=== PATIENT | female | born 1960 | race Caucasian/White ===

== ENCOUNTER 2020-06-18 15:26 | Inpatient (IN) | payer MEDICARE, MEDICAID ==
[2020-06-18] MEDS ORDERED: Albuterol/Ipratropium 3.0-0.5 MG/3 ML Neb Soln NEB ONE (16:04)
--- NOTE | 2020-06-18 16:07 | EDM.PDOC ---
ED HPI GENERAL MEDICAL PROBLEM - General Chief Complaint: Cardiovascular Problem Stated Complaint: CHEST PAIN Time Seen by Provider: 06/18/20 15:50 Source of Information: Reports: Patient, Family History Limitations: Reports: No Limitations - History of Present Illness INITIAL COMMENTS - FREE TEXT/NARRATIVE: 59-year-old female with chronic COPD, asthma, continued cigarette smoker has 2 to 3 days of increased cough, wheezing, chest pain with coughing, and now today hemoptysis. She is extremely scared, hyperventilating because her mother of colon cancer. No fevers or chills. She did get vaccination for Covid. Onset: Gradual Duration: Day(s): (Cough and shortness of breath is been gradually worsening for 3 days, hemoptysis started today fairly suddenly) Location: Reports: Chest (Chest hurts with coughing) Associated Symptoms: Reports: Chest Pain, Cough, Shortness of Breath. Denies: Fever/Chills, Nausea/Vomiting Middle Chest Pain Score (Numeric/FACES): 5 Back Pain Score (Numeric/FACES): 3 - Related Data Allergies Allergy/AdvReac Type Severity Reaction Status Date / Time bee venom protein (honey bee) Allergy Severe Airway Verified 06/19/20 10:24 Tightness divalproex sodium Allergy Severe Anaphylactic Verified 06/19/20 08:42 [From Depakote] Shock Home Meds: Home Meds Albuterol Sulfate [Proair Hfa] 1 - 2 inh INH ASDIRECTED 06/18/20 [History] Albuterol [Proventil Neb Soln] 3 ml INH QID 06/18/20 [History] Albuterol/Ipratropium [DuoNeb 3.0-0.5 MG/3 ML] 1 ml INH Q4H 06/18/20 [History] Cyclobenzaprine [Flexeril] 10 mg PO TID 06/18/20 [History] Dextroamphetamine/Amphetamine [Adderall 10 mg Tablet] 1 tab PO BID 06/18/20 [History] Diphenhyd/Lidocaine/Nystatin [Magic Mouthwash] 5 ml PO QID 06/18/20 [History] EPINEPHrine [Auvi-Q] 0.3 ml SQ ASDIRECTED 06/18/20 [History] Fluticasone Propionate [Flonase] 2 sprays NS DAILY 06/18/20 [History] Fluticasone/Vilanterol [Breo Ellipta 100-25 MCG Inhalation Kit] 1 inh INH DAILY 06/18/20 [History] Gabapentin [Neurontin] 300 mg PO TID 06/18/20 [History] Montelukast [Singulair] 10 mg PO PCDINNER 06/18/20 [History] Multivitamin with Minerals [Multiple Vitamin] 1 tab PO DAILY 06/18/20 [History] Nitroglycerin 1 tab SL ASDIRECTED 06/18/20 [History] Nystatin [Mycostatin] 1 applic TOP QID 06/18/20 [History] Nystatin [Nystatin Crm] 1 applic TOP BID 06/18/20 [History] Omeprazole Magnesium [Prilosec Otc] 20 mg PO DAILY 06/18/20 [History] Oxybutynin [Oxybutynin ER] 10 mg PO DAILY 06/18/20 [History] Pilocarpine [Salagen] 5 mg PO TID 06/18/20 [History] Rotigotine [Neupro] 4 mg TOP DAILY 06/18/20 [History] SUMAtriptan [Imitrex] 1 tab PO ASDIRECTED PRN 06/18/20 [History] Sodium Chloride 0.65% [[place] Nasal [place]] 2 spray INH QID 06/18/20 [History] Temazepam [Restoril] 30 mg PO BEDTIME 06/18/20 [History] Triamcinolone Acetonide [Triamcinolone Acetonide 0.5%] 1 applic TOP BID 06/18/20 [History] Umeclidinium Flushing [Incruse Ellipta*] 1 inh INH DAILY 06/18/20 [History] estradioL [Estrace] 2 mg PO DAILY 06/18/20 [History] oxyCODONE 10 mg PO Q4H PRN 06/18/20 [History] polyethylene glycoL 3350 [MiraLAX] 17 gm PO DAILY 06/18/20 [History] traZODone 50 mg PO BEDTIME 06/18/20 [History] Past Medical History HEENT History: Reports: None Cardiovascular History: Reports: Heart Failure Respiratory History: Reports: Asthma, Bronchitis, Recurrent, COPD Musculoskeletal History: Reports: Fibromyalgia, Other (See Below) Other Musculoskeletal History: pain clinic - Infectious Disease History Infectious Disease History: Reports: Chicken Pox, Measles, Mumps - Past Surgical History Head Surgeries/Procedures: Reports: None HEENT Surgical History: Reports: Tonsillectomy Respiratory Surgical History: Reports: None Musculoskeletal Surgical History: Reports: None Social & Family History - Tobacco Use Tobacco Use Status *Q: Current Every Day Tobacco User Years of Tobacco use: 40 Packs/Tins Daily: 0.5 - Caffeine Use Caffeine Use: Reports: Coffee, Soda, Tea - Recreational Drug Use Recreational Drug Use: No ED ROS GENERAL - Review of Systems Review Of Systems: See Below Constitutional: Reports: Chills, Malaise. Denies: Fever HEENT: Denies: Throat Pain Respiratory: Reports: Shortness of Breath, Wheezing, Cough, Sputum, Hemoptysis Cardiovascular: Reports: Chest Pain, Dyspnea on Exertion GI/Abdominal: Denies: Nausea, Vomiting ED EXAM, GENERAL - Physical Exam Exam: See Below Exam Limited By: No Limitations General Appearance: Alert, Anxious, Mild Distress (Appears to be hyperventilating) Head: Atraumatic Respiratory/Chest: Other (Diffuse inspiratory and expiratory wheezes, bronchial rales present) Cardiovascular: Regular Rate, Rhythm, Tachycardia GI/Abdominal: Non-Tender Extremities: Normal Inspection. No: Pedal Edema Neurological: Alert, Oriented Psychiatric: Anxious Skin Exam: Warm, Dry Course - Vital Signs Last Recorded V/S: Last Vital Signs Temp 95.4 F L 06/19/20 12:30 Pulse 102 H 06/19/20 14:41 Resp 18 06/19/20 12:30 BP 150/80 H 06/19/20 12:30 Pulse Ox 95 06/19/20 13:28 - Orders/Labs/Meds Orders: Active Orders 24 hr Category Date Time Status Sodium Chloride 0.9% [Saline Flush] Med 06/18/20 17:57 Active 10 ml FLUSH ASDIRECTED PRN Medication Orders Albuterol (Albuterol 0.083% 2.5 Mg/3 Ml Neb Soln) 2.5 mg NEB Q4H PRN PRN Reason: Shortness Of Breath/wheezing Last Admin: 06/19/20 04:41 Dose: 2.5 mg Documented by: LUIS Cosigned by: LOW Admin: 06/19/20 00:10 Dose: 2.5 mg Documented by: LOW Albuterol/Ipratropium (Albuterol/Ipratropium 3.0-0.5 Mg/3 Ml Neb Soln) 3 ml NEB QIDRT [facility] Last Admin: 06/19/20 14:41 Dose: 3 ml Documented by: Admin: 06/19/20 10:37 Dose: 3 ml Documented by: Admin: 06/19/20 07:24 Dose: 3 ml Documented by: Admin: 06/18/20 20:32 Dose: 3 ml Documented by: MAREBLLA Bisacodyl (Bisacodyl 5 Mg Tab) 5 mg PO DAILY PRN PRN Reason: Constipation Cyclobenzaprine HCl (Cyclobenzaprine 10 Mg Tab) 10 mg PO TID [facility] Last Admin: 06/19/20 14:25 Dose: 10 mg Documented by: Admin: 06/19/20 08:27 Dose: 10 mg Documented by: AYO Cosigned by: AVANI Admin: 06/18/20 20:32 Dose: 10 mg Documented by: MARBELLA Docusate Sodium (Docusate Sodium 100 Mg Cap) 100 mg PO BID PRN PRN Reason: Constipation Enoxaparin Sodium (Enoxaparin 40 Mg/0.4 Ml Syringe) 40 mg SUBCUT BEDTIME [facility] Estradiol (Estradiol 0.5 Mg Tab) 2 mg PO DAILY [facility] Last Admin: 06/19/20 09:26 Dose: 2 mg Documented by: AVANI Fluticasone Propionate (Fluticasone Propionate Nasal [place] 16 Gm Bottle) 0 gm NASBOTH DAILY [facility] Last Admin: 06/19/20 08:28 Dose: Not Given Documented by: AYO Gabapentin (Gabapentin 300 Mg Cap) 300 mg PO TID [facility] Last Admin: 06/19/20 14:25 Dose: 300 mg Documented by: Admin: 06/19/20 08:27 Dose: 300 mg Documented by: AYO Cosigned by: AVANI Admin: 06/18/20 20:33 Dose: 300 mg Documented by: MARBELLA Ceftriaxone Sodium 1 gm/ (Sodium Chloride) 50 mls @ 100 mls/hr IV Q24H [facility] Last Admin: 06/18/20 20:31 Dose: 100 mls/hr Documented by: MARBELLA Doxycycline Hyclate 100 mg/ (Sodium Chloride) 100 mls @ 100 mls/hr IV Q12H [facility] Last Admin: 06/19/20 09:26 Dose: 100 mls/hr Documented by: AVANI Lactobacillus Rhamnosus (Lactobacillus Rhamnosus Gg (Probiotic) Cap) 1 cap PO BID [facility] Last Admin: 06/19/20 09:26 Dose: 1 cap Documented by: AVANI Methylprednisolone Sodium Succinate (Methylprednisolone Sodium Succinate 40 Mg/1 Ml Sdv) 40 mg IVPUSH Q6H [facility] Last Admin: 06/19/20 14:27 Dose: 40 mg Documented by: Admin: 06/19/20 08:28 Dose: 40 mg Documented by: AYO Cosigned by: AVANI Admin: 06/19/20 02:15 Dose: 40 mg Documented by: LUIS Jorgeigned by: LOW Montelukast Sodium (Montelukast 10 Mg Tab) [facility] Multivitamins/Minerals (Multivitamins With Iron/Calcium/Folic Acid/Minerals Tab) 1 tab PO DAILY [facility] Last Admin: 06/19/20 08:27 Dose: 1 tab Documented by: AYO Cosigned by: AVANI Nicotine (Nicotine 14 Mg/24 Hr Patch) 14 mg TRDERM DAILY [facility] Last Admin: 06/19/20 08:28 Dose: Not Given Documented by: AYO Nitroglycerin (Nitroglycerin 0.4 Mg Tab.Sl) 0.4 mg SL ASDIRECTED PRN PRN Reason: Chest Pain Non-Formulary Medication (Pilocarpine [Salagen]) 5 mg PO TID [facility] Ondansetron HCl (Ondansetron 4 Mg Tab.Dis) 4 mg PO Q6H PRN PRN Reason: Nausea able to take PO Ondansetron HCl (Ondansetron 4 Mg/2 Ml Sdv) 4 mg IV Q4H PRN PRN Reason: Nausea/Vomiting Oxycodone HCl (Oxycodone 5 Mg Tab) 10 mg PO Q4H PRN PRN Reason: Pain Last Admin: 06/19/20 16:40 Dose: 10 mg Documented by: Admin: 06/19/20 12:39 Dose: 10 mg Documented by: AYO Cosigned by: [email or web address] Admin: 06/19/20 08:32 Dose: 10 mg Documented by: AYO Jorgeigned by: AVANI Admin: 06/19/20 04:41 Dose: 10 mg Documented by: LUIS Jorgeigned by: LOW Admin: 06/19/20 00:45 Dose: 10 mg Documented by: Admin: 06/18/20 20:44 Dose: 10 mg Documented by: MARBELLA Pantoprazole Sodium (Pantoprazole 40 Mg Tab.Cr) 40 mg PO BEDTIME [facility] Polyethylene Glycol (Polyethylene Glycol 3350 Powder 17 Gm Packet) 17 gm PO DAILY SERJIO Last Admin: 06/19/20 08:29 Dose: 17 gm Documented by: AYO Cosigned by: AVANI Sodium Chloride (Sodium Chloride 0.9% 10 Ml Syringe) 10 ml FLUSH ASDIRECTED PRN PRN Reason: Keep Vein Open Last Admin: 06/18/20 18:10 Dose: 10 ml Documented by: Admin: 06/18/20 18:08 Dose: 10 ml Documented by: CAROLYN Sumatriptan Succinate (Sumatriptan 50 Mg Tab) 50 mg PO Q2H PRN PRN Reason: Headache Last Admin: 06/19/20 14:24 Dose: 50 mg Documented by: AVANI Temazepam (Temazepam 15 Mg Cap) 30 mg PO BEDTIME PRN PRN Reason: Insomnia Last Admin: 06/18/20 20:59 Dose: 30 mg Documented by: MARBELLA Trazodone HCl (Trazodone 50 Mg Tab) 50 mg PO BEDTIME SERJIO Last Admin: 06/18/20 20:32 Dose: 50 mg Documented by: MARBELLA Labs: Laboratory Tests 06/18/20 06/18/20 06/18/20 Range/Units 16:04 16:14 16:14 WBC 7.5 (4.5-11.0) K/uL RBC 3.95 (3.30-5.50) M/uL Hgb 12.0 (12.0-15.0) g/dL Hct 37.3 (36.0-48.0) % MCV 94 (80-98) fL MCH 30 (27-31) pg MCHC 32 (32-36) % Plt Count 399 (150-400) K/uL Neut % (Auto) 57 (36-66) % Lymph % (Auto) 24 (24-44) % [place] % (Auto) 13 H (2-6) % Eos % (Auto) 5 H (2-4) % Baso % (Auto) 1 (0-1) % D-Dimer, Quantitative 1292.15 H (0.0-500.0) ng/mL Sodium (140-148) mmol/L Potassium (3.6-5.2) mmol/L Chloride (100-108) mmol/L Carbon Dioxide (21-32) mmol/L Anion Gap (5.0-14.0) mmol/L BUN (7-18) mg/dL Creatinine (0.6-1.0) mg/dL Est Cr Clr Drug Dosing mL/min Estimated GFR (MDRD) (>60) Glucose (74-106) mg/dL Calcium (8.5-10.1) mg/dL Total Bilirubin (0.2-1.0) mg/dL AST (15-37) U/L ALT (12-78) U/L Alkaline Phosphatase (46-116) U/L Troponin I (0.000-0.056) ng/mL Total Protein (6.4-8.2) g/dL Albumin (3.4-5.0) g/dL Globulin (2.3-3.5) g/dL Albumin/Globulin Ratio (1.2-2.2) Amylase (25-115) U/L Lipase (73-393) U/L Influenza Type A RNA Negative (NEGATIVE) RSV RNA (INAAT) Negative (NEGATIVE) Influenza Type B RNA Negative (NEGATIVE) SARS-CoV-2 RNA (KENNA) Negative (NEGATIVE) 06/18/20 06/18/20 Range/Units 16:14 16:19 WBC (4.5-11.0) K/uL RBC (3.30-5.50) M/uL Hgb (12.0-15.0) g/dL Hct (36.0-48.0) % MCV (80-98) fL MCH (27-31) pg MCHC (32-36) % Plt Count (150-400) K/uL Neut % (Auto) (36-66) % Lymph % (Auto) (24-44) % [place] % (Auto) (2-6) % Eos % (Auto) (2-4) % Baso % (Auto) (0-1) % D-Dimer, Quantitative (0.0-500.0) ng/mL Sodium 142 (140-148) mmol/L Potassium 4.3 (3.6-5.2) mmol/L Chloride 102 (100-108) mmol/L Carbon Dioxide 27 (21-32) mmol/L Anion Gap 13.4 (5.0-14.0) mmol/L BUN 13 (7-18) mg/dL Creatinine 0.6 (0.6-1.0) mg/dL Est Cr Clr Drug Dosing 104.35 mL/min Estimated GFR (MDRD) > 60 (>60) Glucose 117 H (74-106) mg/dL Calcium 9.6 (8.5-10.1) mg/dL Total Bilirubin 0.2 (0.2-1.0) mg/dL AST 11 L (15-37) U/L ALT 16 (12-78) U/L Alkaline Phosphatase 110 (46-116) U/L Troponin I < 0.017 (0.000-0.056) ng/mL Total Protein 7.4 (6.4-8.2) g/dL Albumin 2.8 L (3.4-5.0) g/dL Globulin 4.6 H (2.3-3.5) g/dL Albumin/Globulin Ratio 0.6 L (1.2-2.2) Amylase 21 L (25-115) U/L Lipase 85 (73-393) U/L Influenza Type A RNA (NEGATIVE) RSV RNA (INAAT) (NEGATIVE) Influenza Type B RNA (NEGATIVE) SARS-CoV-2 RNA (KENNA) (NEGATIVE) Meds: Medications Generic Name Dose Route Start Last Admin Trade Name Freq PRN Reason Stop Dose Admin Albuterol 2.5 mg 06/18/20 19:57 06/19/20 04:41 Albuterol 0.083% 2.5 Mg/3 Ml Neb Soln NEB 2.5 mg Q4H PRN Administration Shortness Of Breath/wheezing Albuterol/Ipratropium 3 ml 06/18/20 21:00 06/19/20 14:41 Albuterol/Ipratropium 3.0-0.5 Mg/3 Ml Neb Soln NEB 3 ml QIDRT SERJIO Administration Bisacodyl 5 mg 06/18/20 19:57 Bisacodyl 5 Mg Tab PO DAILY PRN Constipation Cyclobenzaprine HCl 10 mg 06/18/20 21:00 06/19/20 14:25 Cyclobenzaprine 10 Mg Tab PO 10 mg TID SERJIO Administration Docusate Sodium 100 mg 06/18/20 19:57 Docusate Sodium 100 Mg Cap PO BID PRN Constipation Enoxaparin Sodium 40 mg 06/19/20 21:00 Enoxaparin 40 Mg/0.4 Ml Syringe SUBCUT BEDTIME [facility] Estradiol 2 mg 06/19/20 09:00 06/19/20 09:26 Estradiol 0.5 Mg Tab PO 2 mg DAILY SERJIO Administration Fluticasone Propionate 0 gm 06/19/20 09:00 06/19/20 08:28 Fluticasone Propionate Nasal [place] 16 Gm Bottle NASBOTH Not Given DAILY [facility] Gabapentin 300 mg 06/18/20 21:00 06/19/20 14:25 Gabapentin 300 Mg Cap PO 300 mg TID [facility] Administration Ceftriaxone Sodium 1 gm/ 50 mls @ 100 mls/hr 06/18/20 20:00 06/18/20 20:31 Sodium Chloride IV 100 mls/hr Q24H SERJIO Administration Doxycycline Hyclate 100 mg/ 100 mls @ 100 mls/hr 06/19/20 09:00 06/19/20 09:26 Sodium Chloride IV 100 mls/hr Q12H SERJIO Administration Lactobacillus Rhamnosus 1 cap 06/19/20 09:00 06/19/20 09:26 Lactobacillus Rhamnosus Gg (Probiotic) Cap PO 1 cap BID SERJIO Administration Methylprednisolone Sodium Succinate 40 mg 06/19/20 02:00 06/19/20 14:27 Methylprednisolone Sodium Succinate 40 Mg/1 Ml Sdv IVPUSH 40 mg Q6H [facility] Administration Montelukast Sodium 10 mg 06/19/20 18:00 Montelukast 10 Mg Tab PO PCDINNER [facility] Multivitamins/Minerals 1 tab 06/19/20 09:00 06/19/20 08:27 Multivitamins With Iron/Calcium/Folic Acid/Minerals Tab PO 1 tab DAILY [facility] Administration Nicotine 14 mg 06/19/20 09:00 06/19/20 08:28 Nicotine 14 Mg/24 Hr Patch TRDERM Not Given DAILY [facility] Nitroglycerin 0.4 mg 06/18/20 19:57 Nitroglycerin 0.4 Mg Tab.Sl SL ASDIRECTED PRN Chest Pain Non-Formulary Medication 5 mg 06/18/20 21:00 Pilocarpine [Salagen] PO TID SERJIO Ondansetron HCl 4 mg 06/18/20 19:57 Ondansetron 4 Mg Tab.Dis PO Q6H PRN Nausea able to take PO Ondansetron HCl 4 mg 06/18/20 19:57 Ondansetron 4 Mg/2 Ml Sdv IV Q4H PRN Nausea/Vomiting Oxycodone HCl 10 mg 06/18/20 20:10 06/19/20 16:40 Oxycodone 5 Mg Tab PO 10 mg Q4H PRN Administration Pain Pantoprazole Sodium 40 mg 06/19/20 21:00 Pantoprazole 40 Mg Tab.Cr PO BEDTIME SERJIO Polyethylene Glycol 17 gm 06/19/20 09:00 06/19/20 08:29 Polyethylene Glycol 3350 Powder 17 Gm Packet PO 17 gm DAILY SERJIO Administration Sodium Chloride 10 ml 06/18/20 17:57 06/18/20 18:10 Sodium Chloride 0.9% 10 Ml Syringe FLUSH 10 ml ASDIRECTED PRN Administration Keep Vein Open Sumatriptan Succinate 50 mg 06/19/20 14:13 06/19/20 14:24 Sumatriptan 50 Mg Tab PO 50 mg Q2H PRN Administration Headache Temazepam 30 mg 06/18/20 19:57 06/18/20 20:59 Temazepam 15 Mg Cap PO 30 mg BEDTIME PRN Administration Insomnia Trazodone HCl 50 mg 06/18/20 21:00 06/18/20 20:32 Trazodone 50 Mg Tab PO 50 mg BEDTIME SERJIO Administration Discontinued Medications Generic Name Dose Route Start Last Admin Trade Name Freq PRN Reason Stop Dose Admin Albuterol/Ipratropium 3 ml 06/18/20 16:04 06/18/20 16:20 Albuterol/Ipratropium 3.0-0.5 Mg/3 Ml Neb Soln NEB 06/18/20 16:05 3 ml ONETIME ONE Administration Enoxaparin Sodium 40 mg 06/18/20 19:57 06/18/20 20:32 Enoxaparin 40 Mg/0.4 Ml Syringe SUBCUT 40 mg DAILY SERJIO Administration Hydromorphone HCl 1 mg 06/18/20 19:07 06/18/20 19:34 Hydromorphone 1 Mg/Ml Syringe IVPUSH 06/18/20 19:08 1 mg ONETIME ONE Administration Sodium Chloride 1,000 mls @ 500 mls/hr 06/18/20 17:15 06/18/20 17:47 Normal Saline IV 500 mls/hr ASDIRECTED SERJIO Administration Sodium Chloride 80 mls @ 3 mls/sec 06/18/20 18:00 06/18/20 18:10 Normal Saline IV 3 mls/sec ASDIRECTED SERJIO Administration Azithromycin 500 mg/ Sodium 250 mls @ 250 mls/hr 06/18/20 20:00 06/18/20 20:36 Chloride IV 250 mls/hr Q24H SERJIO Administration Sodium Chloride 1,000 mls @ 125 mls/hr 06/18/20 19:57 06/19/20 04:44 Normal Saline IV 125 mls/hr ASDIRECTED SERJIO Administration Iopamidol 100 ml 06/18/20 18:00 06/18/20 18:10 Iopamidol 612 Mg/Ml 100 Ml Bottle IV 100 ml . DIRECTED SERJIO Administration Methylprednisolone Sodium Succinate 125 mg 06/18/20 19:57 06/18/20 20:31 Methylprednisolone Sodium Succinate 125 Mg/2 Ml Sdv IVPUSH 06/18/20 19:58 125 mg ONETIME ONE Administration Pantoprazole Sodium 40 mg 06/18/20 21:00 06/18/20 20:31 Pantoprazole 40 Mg Vial IV 40 mg BEDTIME SERJIO Administration - Re-Assessments/Exams Free Text/Narrative Re-Assessment/Exam: 06/18/20 17:42 EKG was done on arrival which showed no significant ST elevation or acute findings. CBC, CMP, troponin, D-dimer were obtained and the patient was given a DuoNeb. DuoNeb was moderately helpful, patient was sent for a two-view chest x-ray which showed diffuse bilateral infiltrates, right worse than left. For Plex viral study was obtained and was negative. Labs returned markedly normal including white count and hemoglobin, electrolytes, troponin was 0. D-dimer however was elevated at near 1700, and the patient continued to have a persistent cough with hemoptysis. An IV was then started and a CT of the chest with IV contrast was ordered. I discussed her case with Dr. Mccoy, he will accept admission unless the CT of the chest reveals something where she will need transfer. 06/19/20 17:18 CT scan shows diffuse parenchymal abnormalities with lymphadenopathy. Patient to be admitted to the hospital service for treatment and further evaluation. Departure - Departure Time of Disposition: 18:57 Disposition: Admitted As Inpatient 68 Clinical Impression: Chronic obstructive pulmonary disease with (acute) lower respiratory infection Sepsis Event Note (ED) - Evaluation Sepsis Screening Result: No Definite Risk - My Orders Last 24 Hours: My Active Orders 06/18/20 17:57 Sodium Chloride 0.9% [Saline Flush] 10 ml FLUSH ASDIRECTED PRN - Assessment/Plan Last 24 Hours: My Active Orders 06/18/20 17:57 Sodium Chloride 0.9% [Saline Flush] 10 ml FLUSH ASDIRECTED PRN
[2020-06-18] MEDS ORDERED: Sodium Chloride 0.9% 1,000 ML IV SCH (17:15)
[2020-06-18 17:18] LABS: CORONAVIRUS COVID-19 NAA NEGATIVE (NEGATIVE)
[2020-06-18] MEDS ORDERED: Sodium Chloride 0.9% 80 ML IV SCH (18:00)
[2020-06-18] MEDS ORDERED: Iopamidol 612 MG/ML 100 ML Bottle IV SCH (18:00)
[2020-06-18] MEDS: Sodium Chloride 0.9% 10 ML Syringe FLUSH PRN ×2 (18:08→18:10)
[2020-06-18] MEDS ORDERED: HYDROmorphone 1 MG/ML Syringe IVPUSH ONE (19:07)
--- NOTE | 2020-06-18 19:19 | CRLCT ---
Indication: Hemoptysis Technique: Contrast CT chest Comparison: No comparison Findings: Normal caliber thoracic aorta. The heart size is normal. There is mediastinal hilar adenopathy.Left cervical adenopathy with a 1.2cm short axi snode. There is right upper paratracheal adenopathy with a 1.3 centimeter short axis lymph node series 2, image 18. Example subcarinal node measuring 1.2 cm in short axis series 2, image 25 there is no pericardial effusion. Tiny pleural effusions. There is mild interlobular septal thickening. There is diffuse right greater than left nodular ground-glass opacities with more dense consolidation in the lung bases. No suspicious bony lesions. Impression: 1. Mediastinal right upper paratracheal adenopathy. Left cervical adenopathy. Findings could reflect lymphoproliferative process. 2. Diffuse right slightly worsened left nodular ground-glass opacities with more dense consolidation lower lobes may reflect pulmonary hemorrhage given clinical history. Interlobular septal thickening can be seen with pulmonary edema. Please note that all CT scans at this facility use dose modulation, iterative reconstruction, and/or weight-based dosing when appropriate to reduce radiation dose to as low as reasonably achievable. Dictated by Nieves Kearney MD @ Jun 18 2020 6:52PM (Electronically Signed)
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
[2020-06-18] MEDS ORDERED: Docusate Sodium 100 MG Cap PO PRN (19:57)
[2020-06-18] MEDS ORDERED: Ondansetron 4 MG/2 ML SDV IV PRN (19:57)
[2020-06-18] MEDS ORDERED: methylPREDNISolone Sodium Succinate 125 MG/2 ML SDV IVPUSH ONE (19:57)
[2020-06-18] MEDS ORDERED: Nitroglycerin 0.4 MG Tab.SL SL PRN (19:57)
[2020-06-18] MEDS ORDERED: Ondansetron 4 MG Tab.DIS PO PRN (19:57)
[2020-06-18] MEDS ORDERED: Bisacodyl 5 MG Tab PO PRN (19:57)
[2020-06-18] MEDS ORDERED: Enoxaparin 40 MG/0.4 ML Syringe SUBCUT SCH (19:57)
[2020-06-18] MEDS ORDERED: Azithromycin 500 MG in Sodium Chloride 0.9% 250 ML IV SCH (20:00)
[2020-06-18] MEDS: Sodium Chloride 0.9% 1,000 ML IV SCH (20:31)
[2020-06-18] MEDS: cefTRIAXone 1 GM in Sodium Chloride 0.9% 50 ML IV SCH (20:31)
[2020-06-18] MEDS: Albuterol/Ipratropium 3.0-0.5 MG/3 ML Neb Soln NEB SCH (20:32)
[2020-06-18] MEDS: Cyclobenzaprine 10 MG Tab PO SCH (20:32)
[2020-06-18] MEDS: Gabapentin 300 MG Cap PO SCH ×2 (20:32→20:33)
[2020-06-18] MEDS: traZODone 50 MG Tab PO SCH (20:32)
[2020-06-18] MEDS: oxyCODONE 5 MG Tab PO PRN (20:44)
[2020-06-18] MEDS: Temazepam 15 MG Cap PO PRN (20:59)
[2020-06-18] MEDS ORDERED: Pantoprazole 40 MG Vial IV SCH (21:00)
[2020-06-19] MEDS: Albuterol 0.083% 2.5 MG/3 ML Neb Soln NEB PRN ×2 (00:10→04:41)
[2020-06-19] MEDS: oxyCODONE 5 MG Tab PO PRN ×6 (00:45→21:22)
[2020-06-19] MEDS: methylPREDNISolone Sodium Succinate 40 MG/1 ML SDV IVPUSH SCH ×4 (02:15→20:05)
[2020-06-19] MEDS: Sodium Chloride 0.9% 1,000 ML IV SCH (04:44)
[2020-06-19] MEDS: Albuterol/Ipratropium 3.0-0.5 MG/3 ML Neb Soln NEB SCH ×4 (07:24→21:22)
[2020-06-19] MEDS: Gabapentin 300 MG Cap PO SCH ×3 (08:27→21:16)
[2020-06-19] MEDS: Cyclobenzaprine 10 MG Tab PO SCH ×3 (08:27→21:15)
[2020-06-19] MEDS: Multivitamins with Iron/Calcium/Folic Acid/Minerals Tab PO SCH (08:27)
[2020-06-19] MEDS: Fluticasone Propionate Nasal Spray 16 GM Bottle NASBOTH SCH (08:28)
[2020-06-19] MEDS: Nicotine 14 MG/24 Hr Patch TRDERM SCH (08:28)
[2020-06-19] MEDS: Polyethylene Glycol 3350 Powder 17 GM Packet PO SCH (08:29)
[2020-06-19] MEDS ORDERED: ESTRADIOL 2 MG PO SCH (09:00)
[2020-06-19] MEDS: Lactobacillus Rhamnosus GG (Probiotic) Cap PO SCH ×2 (09:26→21:15)
[2020-06-19] MEDS: Estradiol 0.5 MG Tab PO SCH (09:26)
[2020-06-19] MEDS: Doxycycline 100 MG in Sodium Chloride 0.9% 100 ML IV SCH ×2 (09:26→21:10)
--- NOTE | 2020-06-19 09:42 | CR ---
CHEST: 2 view CLINICAL HISTORY:Dyspnea COMPARISON:None FINDINGS: Heart size and pulmonary vascularity are normal. There are diffuse bilateral pulmonary infiltrates right greater than left.. There is an old rib fracture on the right. IMPRESSION: Bilateral pulmonary infiltrates, right greater than left
--- NOTE | 2020-06-19 13:41 | PCM.PN ---
- General Info Date of Service: 06/19/20 Subjective Update: Ms. Arita is a 59-year-old woman who was admitted through the emergency department with COPD exacerbation secondary to bilateral pneumonia. Symptoms had progressed over the past few days and on initial evaluation she was found to be hypoxic on room air. She has not noted significant improvement in symptoms since admission. Vital signs have been stable and she has remained afebrile. Functional Status: Reports: Tolerating Diet, Urinating - Review of Systems General: Reports: Weakness, Fatigue. Denies: Fever, Chills Pulmonary: Reports: Shortness of Breath, Cough. Denies: Pleuritic Chest Pain, Sputum, Hemoptysis, Wheezing Cardiovascular: Reports: Dyspnea on Exertion. Denies: Chest Pain, Palpitations, Orthopnea, PND, Edema, Lightheadedness Gastrointestinal: Reports: No Symptoms Genitourinary: Reports: No Symptoms - Patient Data Vitals - Most Recent: Last Vital Signs Temp 95.4 F L 06/19/20 12:30 Pulse 105 H 06/19/20 12:30 Resp 18 06/19/20 12:30 BP 150/80 H 06/19/20 12:30 Pulse Ox 97 06/19/20 12:30 Weight - Most Recent: 190 lb 14.725 oz I&O - Last 24 Hours: Intake & Output 06/18/20 06/19/20 06/19/20 22:59 06:59 14:59 Intake Total 800 1670 Output Total 600 1850 500 Balance 200 -180 -500 Lab Results Last 24 Hours: Laboratory Results - last 24 hr 06/18/20 06/18/20 06/18/20 Range/Units 16:04 16:14 16:14 WBC 7.5 (4.5-11.0) K/uL RBC 3.95 (3.30-5.50) M/uL Hgb 12.0 (12.0-15.0) g/dL Hct 37.3 (36.0-48.0) % MCV 94 (80-98) fL MCH 30 (27-31) pg MCHC 32 (32-36) % Plt Count 399 (150-400) K/uL Neut % (Auto) 57 (36-66) % Lymph % (Auto) 24 (24-44) % [place] % (Auto) 13 H (2-6) % Eos % (Auto) 5 H (2-4) % Baso % (Auto) 1 (0-1) % D-Dimer, Quantitative 1292.15 H (0.0-500.0) ng/mL Sodium (140-148) mmol/L Potassium (3.6-5.2) mmol/L Chloride (100-108) mmol/L Carbon Dioxide (21-32) mmol/L Anion Gap (5.0-14.0) mmol/L BUN (7-18) mg/dL Creatinine (0.6-1.0) mg/dL Est Cr Clr Drug Dosing mL/min Estimated GFR (MDRD) (>60) Glucose (74-106) mg/dL Calcium (8.5-10.1) mg/dL Total Bilirubin (0.2-1.0) mg/dL AST (15-37) U/L ALT (12-78) U/L Alkaline Phosphatase (46-116) U/L Troponin I (0.000-0.056) ng/mL Total Protein (6.4-8.2) g/dL Albumin (3.4-5.0) g/dL Globulin (2.3-3.5) g/dL Albumin/Globulin Ratio (1.2-2.2) Amylase (25-115) U/L Lipase (73-393) U/L Urine Color (YELLOW) Urine Appearance (CLEAR) Urine pH (5.0-8.0) Ur Specific [place] (1.008-1.030) Urine Protein (NEGATIVE) mg/dL Urine Glucose (UA) (NEGATIVE) mg/dL Urine Ketones (NEGATIVE) mg/dL Urine Occult Blood (NEGATIVE) Urine Nitrite (NEGATIVE) Urine Bilirubin (NEGATIVE) Urine Urobilinogen (0.2-1.0) EU/dL Ur Leukocyte Esterase (NEGATIVE) Urine RBC (0-5) Urine WBC (0-5) Ur Epithelial Cells Amorphous Sediment Urine Bacteria Urine Mucus Influenza Type A RNA Negative (NEGATIVE) RSV RNA (INAAT) Negative (NEGATIVE) Influenza Type B RNA Negative (NEGATIVE) SARS-CoV-2 RNA (KENNA) Negative (NEGATIVE) 06/18/20 06/18/20 06/19/20 Range/Units 16:14 16:19 00:08 WBC (4.5-11.0) K/uL RBC (3.30-5.50) M/uL Hgb (12.0-15.0) g/dL Hct (36.0-48.0) % MCV (80-98) fL MCH (27-31) pg MCHC (32-36) % Plt Count (150-400) K/uL Neut % (Auto) (36-66) % Lymph % (Auto) (24-44) % [place] % (Auto) (2-6) % Eos % (Auto) (2-4) % Baso % (Auto) (0-1) % D-Dimer, Quantitative (0.0-500.0) ng/mL Sodium 142 (140-148) mmol/L Potassium 4.3 (3.6-5.2) mmol/L Chloride 102 (100-108) mmol/L Carbon Dioxide 27 (21-32) mmol/L Anion Gap 13.4 (5.0-14.0) mmol/L BUN 13 (7-18) mg/dL Creatinine 0.6 (0.6-1.0) mg/dL Est Cr Clr Drug Dosing 104.35 mL/min Estimated GFR (MDRD) > 60 (>60) Glucose 117 H (74-106) mg/dL Calcium 9.6 (8.5-10.1) mg/dL Total Bilirubin 0.2 (0.2-1.0) mg/dL AST 11 L (15-37) U/L ALT 16 (12-78) U/L Alkaline Phosphatase 110 (46-116) U/L Troponin I < 0.017 (0.000-0.056) ng/mL Total Protein 7.4 (6.4-8.2) g/dL Albumin 2.8 L (3.4-5.0) g/dL Globulin 4.6 H (2.3-3.5) g/dL Albumin/Globulin Ratio 0.6 L (1.2-2.2) Amylase 21 L (25-115) U/L Lipase 85 (73-393) U/L Urine Color Yellow (YELLOW) Urine Appearance Clear (CLEAR) Urine pH 7.0 (5.0-8.0) Ur Specific [place] 1.020 (1.008-1.030) Urine Protein Negative (NEGATIVE) mg/dL Urine Glucose (UA) Negative (NEGATIVE) mg/dL Urine Ketones Negative (NEGATIVE) mg/dL Urine Occult Blood Negative (NEGATIVE) Urine Nitrite Negative (NEGATIVE) Urine Bilirubin Negative (NEGATIVE) Urine Urobilinogen 0.2 (0.2-1.0) EU/dL Ur Leukocyte Esterase Trace H (NEGATIVE) Urine RBC Not seen (0-5) Urine WBC 5-10 H (0-5) Ur Epithelial Cells Not seen Amorphous Sediment Not seen Urine Bacteria Not seen Urine Mucus Not seen Influenza Type A RNA (NEGATIVE) RSV RNA (INAAT) (NEGATIVE) Influenza Type B RNA (NEGATIVE) SARS-CoV-2 RNA (KENNA) (NEGATIVE) 06/19/20 06/19/20 Range/Units 06:40 06:40 WBC 5.3 (4.5-11.0) K/uL RBC 3.61 (3.30-5.50) M/uL Hgb 11.0 L (12.0-15.0) g/dL Hct 34.3 L (36.0-48.0) % MCV 95 (80-98) fL MCH 31 (27-31) pg MCHC 32 (32-36) % Plt Count 376 (150-400) K/uL Neut % (Auto) 77 H (36-66) % Lymph % (Auto) 21 L (24-44) % [place] % (Auto) 2 (2-6) % Eos % (Auto) 0 L (2-4) % Baso % (Auto) 0 (0-1) % D-Dimer, Quantitative (0.0-500.0) ng/mL Sodium 140 (140-148) mmol/L Potassium 4.6 (3.6-5.2) mmol/L Chloride 102 (100-108) mmol/L Carbon Dioxide 26 (21-32) mmol/L Anion Gap 12.1 (5.0-14.0) mmol/L BUN 12 (7-18) mg/dL Creatinine 0.8 (0.6-1.0) mg/dL Est Cr Clr Drug Dosing 78.27 mL/min Estimated GFR (MDRD) > 60 (>60) Glucose 195 H (74-106) mg/dL Calcium 9.0 (8.5-10.1) mg/dL Total Bilirubin (0.2-1.0) mg/dL AST (15-37) U/L ALT (12-78) U/L Alkaline Phosphatase (46-116) U/L Troponin I (0.000-0.056) ng/mL Total Protein (6.4-8.2) g/dL Albumin (3.4-5.0) g/dL Globulin (2.3-3.5) g/dL Albumin/Globulin Ratio (1.2-2.2) Amylase (25-115) U/L Lipase (73-393) U/L Urine Color (YELLOW) Urine Appearance (CLEAR) Urine pH (5.0-8.0) Ur Specific [place] (1.008-1.030) Urine Protein (NEGATIVE) mg/dL Urine Glucose (UA) (NEGATIVE) mg/dL Urine Ketones (NEGATIVE) mg/dL Urine Occult Blood (NEGATIVE) Urine Nitrite (NEGATIVE) Urine Bilirubin (NEGATIVE) Urine Urobilinogen (0.2-1.0) EU/dL Ur Leukocyte Esterase (NEGATIVE) Urine RBC (0-5) Urine WBC (0-5) Ur Epithelial Cells Amorphous Sediment Urine Bacteria Urine Mucus Influenza Type A RNA (NEGATIVE) RSV RNA (INAAT) (NEGATIVE) Influenza Type B RNA (NEGATIVE) SARS-CoV-2 RNA (KENNA) (NEGATIVE) Med Orders - Current: Current Medications Albuterol (Albuterol 0.083% 2.5 Mg/3 Ml Neb Soln) 2.5 mg NEB Q4H PRN PRN Reason: Shortness Of Breath/wheezing Last Admin: 06/19/20 04:41 Dose: 2.5 mg Documented by: Albuterol/Ipratropium (Albuterol/Ipratropium 3.0-0.5 Mg/3 Ml Neb Soln) 3 ml NEB QIDRT [facility] Last Admin: 06/19/20 10:37 Dose: 3 ml Documented by: Bisacodyl (Bisacodyl 5 Mg Tab) 5 mg PO DAILY PRN PRN Reason: Constipation Cyclobenzaprine HCl (Cyclobenzaprine 10 Mg Tab) 10 mg PO TID [facility] Last Admin: 06/19/20 08:27 Dose: 10 mg Documented by: Docusate Sodium (Docusate Sodium 100 Mg Cap) 100 mg PO BID PRN PRN Reason: Constipation Enoxaparin Sodium (Enoxaparin 40 Mg/0.4 Ml Syringe) 40 mg SUBCUT BEDTIME [facility] Estradiol (Estradiol 0.5 Mg Tab) 2 mg PO DAILY [facility] Last Admin: 06/19/20 09:26 Dose: 2 mg Documented by: Fluticasone Propionate (Fluticasone Propionate Nasal Lopez 16 Gm Bottle) 0 gm NASBOTH DAILY [facility] Last Admin: 06/19/20 08:28 Dose: Not Given Documented by: Gabapentin (Gabapentin 300 Mg Cap) 300 mg PO TID [facility] Last Admin: 06/19/20 08:27 Dose: 300 mg Documented by: Ceftriaxone Sodium 1 gm/ (Sodium Chloride) 50 mls @ 100 mls/hr IV Q24H [facility] Last Admin: 06/18/20 20:31 Dose: 100 mls/hr Documented by: Doxycycline Hyclate 100 mg/ (Sodium Chloride) 100 mls @ 100 mls/hr IV Q12H [facility] Last Admin: 06/19/20 09:26 Dose: 100 mls/hr Documented by: Lactobacillus Rhamnosus (Lactobacillus Rhamnosus Gg (Probiotic) Cap) 1 cap PO BID [facility] Last Admin: 06/19/20 09:26 Dose: 1 cap Documented by: Methylprednisolone Sodium Succinate (Methylprednisolone Sodium Succinate 40 Mg/1 Ml Sdv) 40 mg IVPUSH Q6H [facility] Last Admin: 06/19/20 08:28 Dose: 40 mg Documented by: Montelukast Sodium (Montelukast 10 Mg Tab) [facility] Multivitamins/Minerals (Multivitamins With Iron/Calcium/Folic Acid/Minerals Tab) 1 tab PO DAILY [facility] Last Admin: 06/19/20 08:27 Dose: 1 tab Documented by: Nicotine (Nicotine 14 Mg/24 Hr Patch) 14 mg TRDERM DAILY [facility] Last Admin: 06/19/20 08:28 Dose: Not Given Documented by: Nitroglycerin (Nitroglycerin 0.4 Mg Tab.Sl) 0.4 mg SL ASDIRECTED PRN PRN Reason: Chest Pain Non-Formulary Medication (Pilocarpine [Salagen]) 5 mg PO TID [facility] Ondansetron HCl (Ondansetron 4 Mg Tab.Dis) 4 mg PO Q6H PRN PRN Reason: Nausea able to take PO Ondansetron HCl (Ondansetron 4 Mg/2 Ml Sdv) 4 mg IV Q4H PRN PRN Reason: Nausea/Vomiting Oxycodone HCl (Oxycodone 5 Mg Tab) 10 mg PO Q4H PRN PRN Reason: Pain Last Admin: 06/19/20 12:39 Dose: 10 mg Documented by: Pantoprazole Sodium (Pantoprazole 40 Mg Tab.Cr) 40 mg PO BEDTIME SERJOI Polyethylene Glycol (Polyethylene Glycol 3350 Powder 17 Gm Packet) 17 gm PO DAILY [facility] Last Admin: 06/19/20 08:29 Dose: 17 gm Documented by: Sodium Chloride (Sodium Chloride 0.9% 10 Ml Syringe) 10 ml FLUSH ASDIRECTED PRN PRN Reason: Keep Vein Open Last Admin: 06/18/20 18:10 Dose: 10 ml Documented by: Temazepam (Temazepam 15 Mg Cap) 30 mg PO BEDTIME PRN PRN Reason: Insomnia Last Admin: 06/18/20 20:59 Dose: 30 mg Documented by: Trazodone HCl (Trazodone 50 Mg Tab) 50 mg PO BEDTIME [facility] Last Admin: 06/18/20 20:32 Dose: 50 mg Documented by: Discontinued Medications Albuterol/Ipratropium (Albuterol/Ipratropium 3.0-0.5 Mg/3 Ml Neb Soln) 3 ml NEB ONETIME ONE Stop: 06/18/20 16:05 Last Admin: 06/18/20 16:20 Dose: 3 ml Documented by: Enoxaparin Sodium (Enoxaparin 40 Mg/0.4 Ml Syringe) 40 mg SUBCUT DAILY [facility] Last Admin: 06/18/20 20:32 Dose: 40 mg Documented by: Hydromorphone HCl (Hydromorphone 1 Mg/Ml Syringe) 1 mg IVPUSH ONETIME ONE Stop: 06/18/20 19:08 Last Admin: 06/18/20 19:34 Dose: 1 mg Documented by: Sodium Chloride (Normal Saline) 1,000 mls @ 500 mls/hr IV ASDIRECTED [facility] Last Admin: 06/18/20 17:47 Dose: 500 mls/hr Documented by: Sodium Chloride (Normal Saline) 80 mls @ 3 mls/sec IV ASDIRECTED SERJIO Last Admin: 06/18/20 18:10 Dose: 3 mls/sec Documented by: Azithromycin 500 mg/ Sodium (Chloride) 250 mls @ 250 mls/hr IV Q24H [facility] Last Admin: 06/18/20 20:36 Dose: 250 mls/hr Documented by: Sodium Chloride (Normal Saline) 1,000 mls @ 125 mls/hr IV ASDIRECTED [facility] Last Admin: 06/19/20 04:44 Dose: 125 mls/hr Documented by: Iopamidol (Iopamidol 612 Mg/Ml 100 Ml Bottle) 100 ml IV . DIRECTED [facility] Last Admin: 06/18/20 18:10 Dose: 100 ml Documented by: Methylprednisolone Sodium Succinate (Methylprednisolone Sodium Succinate 125 Mg/ 2 Ml Sdv) 125 mg IVPUSH ONETIME ONE Stop: 06/18/20 19:58 Last Admin: 06/18/20 20:31 Dose: 125 mg Documented by: Pantoprazole Sodium (Pantoprazole 40 Mg Vial) 40 mg IV BEDTIME SERJIO Last Admin: 06/18/20 20:31 Dose: 40 mg Documented by: - Exam Quality Assessment: Supplemental Oxygen, DVT Prophylaxis General: Alert, Oriented, Cooperative, Moderate Distress Lungs: Normal Respiratory Effort, Decreased Breath Sounds, Rhonchi, Wheezing. No: Crackles, Rales Cardiovascular: Regular Rate, Regular Rhythm, No Murmurs GI/Abdominal Exam: Soft, Non-Tender, No Organomegaly, No Distention Extremities: Non-Tender, No Pedal Edema - Patient Data Lab Results Last 24 hrs: Laboratory Results - last 24 hr 06/18/20 06/18/20 06/18/20 Range/Units 16:04 16:14 16:14 WBC 7.5 (4.5-11.0) K/uL RBC 3.95 (3.30-5.50) M/uL Hgb 12.0 (12.0-15.0) g/dL Hct 37.3 (36.0-48.0) % MCV 94 (80-98) fL MCH 30 (27-31) pg MCHC 32 (32-36) % Plt Count 399 (150-400) K/uL Neut % (Auto) 57 (36-66) % Lymph % (Auto) 24 (24-44) % [place] % (Auto) 13 H (2-6) % Eos % (Auto) 5 H (2-4) % Baso % (Auto) 1 (0-1) % D-Dimer, Quantitative 1292.15 H (0.0-500.0) ng/mL Sodium (140-148) mmol/L Potassium (3.6-5.2) mmol/L Chloride (100-108) mmol/L Carbon Dioxide (21-32) mmol/L Anion Gap (5.0-14.0) mmol/L BUN (7-18) mg/dL Creatinine (0.6-1.0) mg/dL Est Cr Clr Drug Dosing mL/min Estimated GFR (MDRD) (>60) Glucose (74-106) mg/dL Calcium (8.5-10.1) mg/dL Total Bilirubin (0.2-1.0) mg/dL AST (15-37) U/L ALT (12-78) U/L Alkaline Phosphatase (46-116) U/L Troponin I (0.000-0.056) ng/mL Total Protein (6.4-8.2) g/dL Albumin (3.4-5.0) g/dL Globulin (2.3-3.5) g/dL Albumin/Globulin Ratio (1.2-2.2) Amylase (25-115) U/L Lipase (73-393) U/L Urine Color (YELLOW) Urine Appearance (CLEAR) Urine pH (5.0-8.0) Ur Specific [place] (1.008-1.030) Urine Protein (NEGATIVE) mg/dL Urine Glucose (UA) (NEGATIVE) mg/dL Urine Ketones (NEGATIVE) mg/dL Urine Occult Blood (NEGATIVE) Urine Nitrite (NEGATIVE) Urine Bilirubin (NEGATIVE) Urine Urobilinogen (0.2-1.0) EU/dL Ur Leukocyte Esterase (NEGATIVE) Urine RBC (0-5) Urine WBC (0-5) Ur Epithelial Cells Amorphous Sediment Urine Bacteria Urine Mucus Influenza Type A RNA Negative (NEGATIVE) RSV RNA (INAAT) Negative (NEGATIVE) Influenza Type B RNA Negative (NEGATIVE) SARS-CoV-2 RNA (KENNA) Negative (NEGATIVE) 06/18/20 06/18/20 06/19/20 Range/Units 16:14 16:19 00:08 WBC (4.5-11.0) K/uL RBC (3.30-5.50) M/uL Hgb (12.0-15.0) g/dL Hct (36.0-48.0) % MCV (80-98) fL MCH (27-31) pg MCHC (32-36) % Plt Count (150-400) K/uL Neut % (Auto) (36-66) % Lymph % (Auto) (24-44) % [place] % (Auto) (2-6) % Eos % (Auto) (2-4) % Baso % (Auto) (0-1) % D-Dimer, Quantitative (0.0-500.0) ng/mL Sodium 142 (140-148) mmol/L Potassium 4.3 (3.6-5.2) mmol/L Chloride 102 (100-108) mmol/L Carbon Dioxide 27 (21-32) mmol/L Anion Gap 13.4 (5.0-14.0) mmol/L BUN 13 (7-18) mg/dL Creatinine 0.6 (0.6-1.0) mg/dL Est Cr Clr Drug Dosing 104.35 mL/min Estimated GFR (MDRD) > 60 (>60) Glucose 117 H (74-106) mg/dL Calcium 9.6 (8.5-10.1) mg/dL Total Bilirubin 0.2 (0.2-1.0) mg/dL AST 11 L (15-37) U/L ALT 16 (12-78) U/L Alkaline Phosphatase 110 (46-116) U/L Troponin I < 0.017 (0.000-0.056) ng/mL Total Protein 7.4 (6.4-8.2) g/dL Albumin 2.8 L (3.4-5.0) g/dL Globulin 4.6 H (2.3-3.5) g/dL Albumin/Globulin Ratio 0.6 L (1.2-2.2) Amylase 21 L (25-115) U/L Lipase 85 (73-393) U/L Urine Color Yellow (YELLOW) Urine Appearance Clear (CLEAR) Urine pH 7.0 (5.0-8.0) Ur Specific [place] 1.020 (1.008-1.030) Urine Protein Negative (NEGATIVE) mg/dL Urine Glucose (UA) Negative (NEGATIVE) mg/dL Urine Ketones Negative (NEGATIVE) mg/dL Urine Occult Blood Negative (NEGATIVE) Urine Nitrite Negative (NEGATIVE) Urine Bilirubin Negative (NEGATIVE) Urine Urobilinogen 0.2 (0.2-1.0) EU/dL Ur Leukocyte Esterase Trace H (NEGATIVE) Urine RBC Not seen (0-5) Urine WBC 5-10 H (0-5) Ur Epithelial Cells Not seen Amorphous Sediment Not seen Urine Bacteria Not seen Urine Mucus Not seen Influenza Type A RNA (NEGATIVE) RSV RNA (INAAT) (NEGATIVE) Influenza Type B RNA (NEGATIVE) SARS-CoV-2 RNA (KENNA) (NEGATIVE) 06/19/20 06/19/20 Range/Units 06:40 06:40 WBC 5.3 (4.5-11.0) K/uL RBC 3.61 (3.30-5.50) M/uL Hgb 11.0 L (12.0-15.0) g/dL Hct 34.3 L (36.0-48.0) % MCV 95 (80-98) fL MCH 31 (27-31) pg MCHC 32 (32-36) % Plt Count 376 (150-400) K/uL Neut % (Auto) 77 H (36-66) % Lymph % (Auto) 21 L (24-44) % [place] % (Auto) 2 (2-6) % Eos % (Auto) 0 L (2-4) % Baso % (Auto) 0 (0-1) % D-Dimer, Quantitative (0.0-500.0) ng/mL Sodium 140 (140-148) mmol/L Potassium 4.6 (3.6-5.2) mmol/L Chloride 102 (100-108) mmol/L Carbon Dioxide 26 (21-32) mmol/L Anion Gap 12.1 (5.0-14.0) mmol/L BUN 12 (7-18) mg/dL Creatinine 0.8 (0.6-1.0) mg/dL Est Cr Clr Drug Dosing 78.27 mL/min Estimated GFR (MDRD) > 60 (>60) Glucose 195 H (74-106) mg/dL Calcium 9.0 (8.5-10.1) mg/dL Total Bilirubin (0.2-1.0) mg/dL AST (15-37) U/L ALT (12-78) U/L Alkaline Phosphatase (46-116) U/L Troponin I (0.000-0.056) ng/mL Total Protein (6.4-8.2) g/dL Albumin (3.4-5.0) g/dL Globulin (2.3-3.5) g/dL Albumin/Globulin Ratio (1.2-2.2) Amylase (25-115) U/L Lipase (73-393) U/L Urine Color (YELLOW) Urine Appearance (CLEAR) Urine pH (5.0-8.0) Ur Specific [place] (1.008-1.030) Urine Protein (NEGATIVE) mg/dL Urine Glucose (UA) (NEGATIVE) mg/dL Urine Ketones (NEGATIVE) mg/dL Urine Occult Blood (NEGATIVE) Urine Nitrite (NEGATIVE) Urine Bilirubin (NEGATIVE) Urine Urobilinogen (0.2-1.0) EU/dL Ur Leukocyte Esterase (NEGATIVE) Urine RBC (0-5) Urine WBC (0-5) Ur Epithelial Cells Amorphous Sediment Urine Bacteria Urine Mucus Influenza Type A RNA (NEGATIVE) RSV RNA (INAAT) (NEGATIVE) Influenza Type B RNA (NEGATIVE) SARS-CoV-2 RNA (KENNA) (NEGATIVE) Result Diagrams: 06/19/20 06:40 06/19/20 06:40 Sepsis Event Note - Evaluation Sepsis Screening Result: No Definite Risk - Focused Exam Vital Signs: Vital Signs Temp Temp Pulse Resp BP Pulse Ox 06/19/20 12:30 95.4 F L 105 H 18 150/80 H 97 06/19/20 08:02 95.4 F L 104 H 20 150/84 H 91 L 06/19/20 06:57 93 L 06/19/20 02:21 96.1 F L 85 22 H 137/68 92 L - Problem List Review Problem List Initiated/Reviewed/Updated: Yes - My Orders Last 24 Hours: My Active Orders 06/19/20 09:00 Doxycycline [Vibramycin] 100 mg Sodium Chloride 0.9% [Normal Saline] 100 ml IV Q12H Lactobacillus Rhamnosus GG [Culturelle] 1 cap PO BID 06/19/20 13:11 Convert IV to Saline Lock [OM.PC] Routine 06/20/20 05:00 BASIC METABOLIC PANEL,BMP [CHEM] Timed - Plan Plan:: ASSESSMENT AND PLAN COPD EXACERBATION-secondary to bilateral pneumonia -Saline lock -IV Antibiotic; Rocephin and doxycycline -oxygen to keep sats greater than 95% -IV Solumedrol 40 mg every 8 hours -schedule Duo nebs every 6 hours, Albuterol nebs every 4 hours prn -blood cultures x2 pending BILATERAL PNEUMONIA -Management as above HYPOXIC RESPIRATORY FAILURE-secondary to COPD exacerbation and pneumonia -Supplemental oxygen as needed -Continuous pulse oximetry Chronic pain -continue outpatient medication plan Tobacco dependence -Nicotine patch 14 mg daily -encouraged to quit smoking Maintenance issues -Orders home meds: chronic medication -Nutrition: regular diet -Christie catheter -not indicated at this time -DVT - Lovenox 40 mg subcut daily -PPI; IV Protonix 40mg daily CODE STATUS: FULL Admission status: Admit to [address] [place] [address] justification. This patient will be admitted for inpatient services and is medically appropriate meeting medical necessity for inpatient admission as outlined in my documentation. I reasonably expect the patient will require inpatient services that span. Time over 2 midnights. I reasonably expect this patient to be discharged or transferred within 96 hours after admission to the [facility]. Disposition: home with Family Primary care provider: Dr. Esquivel, [facility] Hospitalist: Dr. Mccoy
[2020-06-19] MEDS: SUMAtriptan 50 MG Tab PO PRN (14:24)
[2020-06-19] MEDS: Montelukast 10 MG Tab PO SCH (18:42)
[2020-06-19] MEDS: cefTRIAXone 1 GM in Sodium Chloride 0.9% 50 ML IV SCH (20:09)
[2020-06-19] MEDS: Enoxaparin 40 MG/0.4 ML Syringe SUBCUT SCH (21:16)
[2020-06-19] MEDS: traZODone 50 MG Tab PO SCH (21:16)
[2020-06-19] MEDS: Temazepam 15 MG Cap PO PRN (21:22)
[2020-06-19] MEDS: Pantoprazole 40 MG Tab.CR PO SCH (21:26)
[2020-06-20] MEDS: oxyCODONE 5 MG Tab PO PRN ×6 (02:01→22:05)
[2020-06-20] MEDS: methylPREDNISolone Sodium Succinate 40 MG/1 ML SDV IVPUSH SCH ×4 (02:03→20:19)
[2020-06-20] MEDS: Albuterol/Ipratropium 3.0-0.5 MG/3 ML Neb Soln NEB SCH ×4 (07:09→20:22)
[2020-06-20] MEDS: Fluticasone Propionate Nasal Spray 16 GM Bottle NASBOTH SCH (09:11)
[2020-06-20] MEDS: Estradiol 0.5 MG Tab PO SCH (09:12)
[2020-06-20] MEDS: Multivitamins with Iron/Calcium/Folic Acid/Minerals Tab PO SCH (09:12)
[2020-06-20] MEDS: Lactobacillus Rhamnosus GG (Probiotic) Cap PO SCH ×2 (09:12→20:22)
[2020-06-20] MEDS: Gabapentin 300 MG Cap PO SCH ×3 (09:12→20:23)
[2020-06-20] MEDS: Cyclobenzaprine 10 MG Tab PO SCH ×3 (09:12→20:22)
[2020-06-20] MEDS: Nicotine 14 MG/24 Hr Patch TRDERM SCH (09:13)
[2020-06-20] MEDS: Polyethylene Glycol 3350 Powder 17 GM Packet PO SCH (09:13)
[2020-06-20] MEDS: Doxycycline 100 MG in Sodium Chloride 0.9% 100 ML IV SCH ×2 (09:14→20:51)
[2020-06-20] MEDS: Albuterol 0.083% 2.5 MG/3 ML Neb Soln NEB PRN (10:20)
[2020-06-20] MEDS: PILOCARPINE 5 MG PO SCH ×2 (13:39→20:23)
[2020-06-20] MEDS: SUMAtriptan 50 MG Tab PO PRN (16:13)
[2020-06-20] MEDS: Montelukast 10 MG Tab PO SCH (18:02)
[2020-06-20] MEDS: cefTRIAXone 1 GM in Sodium Chloride 0.9% 50 ML IV SCH (20:17)
[2020-06-20] MEDS: Enoxaparin 40 MG/0.4 ML Syringe SUBCUT SCH (20:22)
[2020-06-20] MEDS: Pantoprazole 40 MG Tab.CR PO SCH (20:23)
[2020-06-20] MEDS: traZODone 50 MG Tab PO SCH (20:24)
[2020-06-20] MEDS: Temazepam 15 MG Cap PO PRN (22:05)
[2020-06-21] MEDS: methylPREDNISolone Sodium Succinate 40 MG/1 ML SDV IVPUSH SCH ×2 (01:56→08:45)
[2020-06-21] MEDS: oxyCODONE 5 MG Tab PO PRN ×6 (02:05→22:05)
[2020-06-21] MEDS: Albuterol/Ipratropium 3.0-0.5 MG/3 ML Neb Soln NEB SCH ×4 (07:15→21:01)
[2020-06-21] MEDS: Lactobacillus Rhamnosus GG (Probiotic) Cap PO SCH ×2 (08:42→21:01)
[2020-06-21] MEDS: Cyclobenzaprine 10 MG Tab PO SCH ×3 (08:43→21:01)
[2020-06-21] MEDS: Gabapentin 300 MG Cap PO SCH ×3 (08:43→21:01)
[2020-06-21] MEDS: Estradiol 0.5 MG Tab PO SCH (08:43)
[2020-06-21] MEDS: PILOCARPINE 5 MG PO SCH ×3 (08:44→21:01)
[2020-06-21] MEDS: Multivitamins with Iron/Calcium/Folic Acid/Minerals Tab PO SCH (08:44)
[2020-06-21] MEDS: Fluticasone Propionate Nasal Spray 16 GM Bottle NASBOTH SCH (08:49)
[2020-06-21] MEDS: Nicotine 14 MG/24 Hr Patch TRDERM SCH (08:49)
[2020-06-21] MEDS: Polyethylene Glycol 3350 Powder 17 GM Packet PO SCH (08:50)
[2020-06-21] MEDS: Doxycycline 100 MG in Sodium Chloride 0.9% 100 ML IV SCH (10:48)
--- NOTE | 2020-06-21 11:16 | PCM.PN ---
- General Info Date of Service: 06/21/20 Subjective Update: Ms. Arita has been stable over the last 24 hours. She continues to require supplemental oxygen and does desaturate with activity. Subjectively she feels less short of breath and cough seems to be improving. Functional Status: Reports: Tolerating Diet, Ambulating, Urinating - Review of Systems General: Reports: Weakness, Fatigue. Denies: Fever, Chills Pulmonary: Reports: Shortness of Breath, Cough, Wheezing. Denies: Pleuritic Chest Pain, Sputum, Hemoptysis Cardiovascular: Reports: Dyspnea on Exertion. Denies: Chest Pain, Palpitations, Orthopnea, PND, Edema Gastrointestinal: Reports: No Symptoms Genitourinary: Reports: No Symptoms - Patient Data Vitals - Most Recent: Last Vital Signs Temp 96.2 F L 06/21/20 07:31 Pulse 94 06/21/20 11:13 Resp 20 06/21/20 07:31 BP 143/66 H 06/21/20 07:31 Pulse Ox 95 06/21/20 07:31 Weight - Most Recent: 190 lb 14.725 oz I&O - Last 24 Hours: Intake & Output 06/20/20 06/21/20 06/21/20 22:59 06:59 14:59 Intake Total 480 680 Balance 480 680 Jagjit Results Last 24 Hours: Microbiology 06/18/20 20:00 Aerobic Blood Culture - Preliminary Blood - Venous NO GROWTH AFTER 2 DAYS Anaerobic Blood Culture - Preliminary NO GROWTH AFTER 2 DAYS 06/18/20 20:15 Aerobic Blood Culture - Preliminary Blood - Venous - Lab Draw NO GROWTH AFTER 2 DAYS Anaerobic Blood Culture - Preliminary NO GROWTH AFTER 2 DAYS Med Orders - Current: Current Medications Albuterol (Albuterol 0.083% 2.5 Mg/3 Ml Neb Soln) 2.5 mg NEB Q4H PRN PRN Reason: Shortness Of Breath/wheezing Last Admin: 06/20/20 10:20 Dose: 2.5 mg Documented by: Albuterol/Ipratropium (Albuterol/Ipratropium 3.0-0.5 Mg/3 Ml Neb Soln) 3 ml NEB QIDRT [facility] Last Admin: 06/21/20 10:55 Dose: 3 ml Documented by: Bisacodyl (Bisacodyl 5 Mg Tab) 5 mg PO DAILY PRN PRN Reason: Constipation Cyclobenzaprine HCl (Cyclobenzaprine 10 Mg Tab) 10 mg PO TID [facility] Last Admin: 06/21/20 08:43 Dose: 10 mg Documented by: Docusate Sodium (Docusate Sodium 100 Mg Cap) 100 mg PO BID PRN PRN Reason: Constipation Enoxaparin Sodium (Enoxaparin 40 Mg/0.4 Ml Syringe) 40 mg SUBCUT BEDTIME [facility] Last Admin: 06/20/20 20:22 Dose: 40 mg Documented by: Estradiol (Estradiol 0.5 Mg Tab) 2 mg PO DAILY [facility] Last Admin: 06/21/20 08:43 Dose: 2 mg Documented by: Fluticasone Propionate (Fluticasone Propionate Nasal [place] 16 Gm Bottle) 0 gm NASBOTH DAILY [facility] Last Admin: 06/21/20 08:49 Dose: Not Given Documented by: Gabapentin (Gabapentin 300 Mg Cap) 300 mg PO TID [facility] Last Admin: 06/21/20 08:43 Dose: 300 mg Documented by: Ceftriaxone Sodium 1 gm/ (Sodium Chloride) 50 mls @ 100 mls/hr IV Q24H [facility] Last Admin: 06/20/20 20:17 Dose: 100 mls/hr Documented by: Lactobacillus Rhamnosus (Lactobacillus Rhamnosus Gg (Probiotic) Cap) 1 cap PO BID [facility] Last Admin: 06/21/20 08:42 Dose: 1 cap Documented by: Montelukast Sodium (Montelukast 10 Mg Tab) 10 mg PO PCDINNER [facility] Last Admin: 06/20/20 18:02 Dose: 10 mg Documented by: Multivitamins/Minerals (Multivitamins With Iron/Calcium/Folic Acid/Minerals Tab) 1 tab PO DAILY [facility] Last Admin: 06/21/20 08:44 Dose: 1 tab Documented by: Nicotine (Nicotine 14 Mg/24 Hr Patch) 14 mg TRDERM DAILY [facility] Last Admin: 06/21/20 08:49 Dose: Not Given Documented by: Nitroglycerin (Nitroglycerin 0.4 Mg Tab.Sl) 0.4 mg SL ASDIRECTED PRN PRN Reason: Chest Pain [place] 5 Mg (Ptom) 0 mg PO TID [facility] Last Admin: 06/21/20 08:44 Dose: 5 mg Documented by: Ondansetron HCl (Ondansetron 4 Mg Tab.Dis) 4 mg PO Q6H PRN PRN Reason: Nausea able to take PO Ondansetron HCl (Ondansetron 4 Mg/2 Ml Sdv) 4 mg IV Q4H PRN PRN Reason: Nausea/Vomiting Oxycodone HCl (Oxycodone 5 Mg Tab) 10 mg PO Q4H PRN PRN Reason: Pain Last Admin: 06/21/20 10:19 Dose: 10 mg Documented by: Pantoprazole Sodium (Pantoprazole 40 Mg Tab.Cr) 40 mg PO BEDTIME [facility] Last Admin: 06/20/20 20:23 Dose: 40 mg Documented by: Polyethylene Glycol (Polyethylene Glycol 3350 Powder 17 Gm Packet) 17 gm PO DAILY [facility] Last Admin: 06/21/20 08:50 Dose: Not Given Documented by: Sodium Chloride (Sodium Chloride 0.9% 10 Ml Syringe) 10 ml FLUSH ASDIRECTED PRN PRN Reason: Keep Vein Open Last Admin: 06/18/20 18:10 Dose: 10 ml Documented by: Sumatriptan Succinate (Sumatriptan 50 Mg Tab) 50 mg PO Q2H PRN PRN Reason: Headache Last Admin: 06/20/20 16:13 Dose: 50 mg Documented by: Temazepam (Temazepam 15 Mg Cap) 30 mg PO BEDTIME PRN PRN Reason: Insomnia Last Admin: 06/20/20 22:05 Dose: 30 mg Documented by: Trazodone HCl (Trazodone 50 Mg Tab) 50 mg PO BEDTIME [facility] Last Admin: 06/20/20 20:24 Dose: Not Given Documented by: Discontinued Medications Albuterol/Ipratropium (Albuterol/Ipratropium 3.0-0.5 Mg/3 Ml Neb Soln) 3 ml NEB ONETIME ONE Stop: 06/18/20 16:05 Last Admin: 06/18/20 16:20 Dose: 3 ml Documented by: Enoxaparin Sodium (Enoxaparin 40 Mg/0.4 Ml Syringe) 40 mg SUBCUT DAILY [facility] Last Admin: 06/18/20 20:32 Dose: 40 mg Documented by: Hydromorphone HCl (Hydromorphone 1 Mg/Ml Syringe) 1 mg IVPUSH ONETIME ONE Stop: 06/18/20 19:08 Last Admin: 06/18/20 19:34 Dose: 1 mg Documented by: Sodium Chloride (Normal Saline) 1,000 mls @ 500 mls/hr IV ASDIRECTED [facility] Last Admin: 06/18/20 17:47 Dose: 500 mls/hr Documented by: Sodium Chloride (Normal Saline) 80 mls @ 3 mls/sec IV ASDIRECTED [facility] Last Admin: 06/18/20 18:10 Dose: 3 mls/sec Documented by: Azithromycin 500 mg/ Sodium (Chloride) 250 mls @ 250 mls/hr IV Q24H [facility] Last Admin: 06/18/20 20:36 Dose: 250 mls/hr Documented by: Sodium Chloride (Normal Saline) 1,000 mls @ 125 mls/hr IV ASDIRECTED [facility] Last Admin: 06/19/20 04:44 Dose: 125 mls/hr Documented by: Doxycycline Hyclate 100 mg/ (Sodium Chloride) 100 mls @ 100 mls/hr IV Q12H [facility] Last Admin: 06/21/20 10:48 Dose: 100 mls/hr Documented by: Iopamidol (Iopamidol 612 Mg/Ml 100 Ml Bottle) 100 ml IV . DIRECTED [facility] Last Admin: 06/18/20 18:10 Dose: 100 ml Documented by: Methylprednisolone Sodium Succinate (Methylprednisolone Sodium Succinate 125 Mg/2 Ml Sdv) 125 mg IVPUSH ONETIME ONE Stop: 06/18/20 19:58 Last Admin: 06/18/20 20:31 Dose: 125 mg Documented by: Methylprednisolone Sodium Succinate (Methylprednisolone Sodium Succinate 40 Mg/1 Ml Sdv) 40 mg IVPUSH Q6H [facility] Last Admin: 06/21/20 08:45 Dose: 40 mg Documented by: Pantoprazole Sodium (Pantoprazole 40 Mg Vial) 40 mg IV BEDTIME [facility] Last Admin: 06/18/20 20:31 Dose: 40 mg Documented by: - Exam Quality Assessment: Supplemental Oxygen, DVT Prophylaxis General: Alert, Oriented, Cooperative, Mild Distress Lungs: Decreased Breath Sounds, Rhonchi, Wheezing. No: Crackles, Rales Cardiovascular: Regular Rate, Regular Rhythm, No Murmurs GI/Abdominal Exam: Soft, Non-Tender, No Organomegaly, No Distention Extremities: Non-Tender, No Pedal Edema - Patient Data Result Diagrams: 06/19/20 06:40 06/20/20 04:28 Jagjit Results Last 24 hrs: Microbiology 06/18/20 20:00 Aerobic Blood Culture - Preliminary Blood - Venous NO GROWTH AFTER 2 DAYS Anaerobic Blood Culture - Preliminary NO GROWTH AFTER 2 DAYS 06/18/20 20:15 Aerobic Blood Culture - Preliminary Blood - Venous - Lab Draw NO GROWTH AFTER 2 DAYS Anaerobic Blood Culture - Preliminary NO GROWTH AFTER 2 DAYS Sepsis Event Note - Evaluation Sepsis Screening Result: No Definite Risk - Focused Exam Vital Signs: Vital Signs Temp Temp Pulse Resp BP Pulse Ox 06/21/20 11:13 94 06/21/20 07:31 96.2 F L 98 20 143/66 H 95 06/21/20 07:15 82 97 06/21/20 02:00 94.3 F L 80 16 145/76 H 95 06/21/20 01:51 97 - Problem List Review Problem List Initiated/Reviewed/Updated: Yes - My Orders Last 24 Hours: My Active Orders 06/21/20 11:15 Doxycycline [Vibramycin] 100 mg PO Q12H 06/22/20 08:00 predniSONE 40 mg PO WITHBREAKFAST - Plan Plan:: ASSESSMENT AND PLAN COPD EXACERBATION-secondary to bilateral pneumonia -Saline lock -IV Antibiotic; Rocephin and doxycycline -oxygen to keep sats greater than 95% -Prednisone 40 mg p.o. daily -schedule Duo nebs every 6 hours, Albuterol nebs every 4 hours prn -blood cultures x2 pending BILATERAL PNEUMONIA -Management as above HYPOXIC RESPIRATORY FAILURE-secondary to COPD exacerbation and pneumonia -Supplemental oxygen as needed -Continuous pulse oximetry Chronic pain -continue outpatient medication plan Tobacco dependence -Nicotine patch 14 mg daily -encouraged to quit smoking Maintenance issues -Orders home meds: chronic medication -Nutrition: regular diet -Christie catheter -not indicated at this time -DVT - Lovenox 40 mg subcut daily -PPI; IV Protonix 40mg daily CODE STATUS: FULL Admission status: Admit to [address] [place] [address] justification. This patient will be admitted for inpatient services and is medically appropriate meeting medical necessity for inpatient admission as outlined in my documentation. I reasonably expect the patient will require inpatient services that span. Time over 2 midnights. I reasonably expect this patient to be discharged or transferred within 96 hours after admission to the [facility]. Disposition: home with Family Primary care provider: Dr. Esquivel, [facility] Hospitalist: Dr. Mccoy
[2020-06-21] MEDS: Montelukast 10 MG Tab PO SCH (17:49)
[2020-06-21] MEDS: cefTRIAXone 1 GM in Sodium Chloride 0.9% 50 ML IV SCH (19:24)
[2020-06-21] MEDS: traZODone 50 MG Tab PO SCH (21:00)
[2020-06-21] MEDS: Pantoprazole 40 MG Tab.CR PO SCH (21:01)
[2020-06-21] MEDS: Enoxaparin 40 MG/0.4 ML Syringe SUBCUT SCH (21:01)
[2020-06-21] MEDS: Doxycycline 100 MG Cap PO SCH (21:01)
[2020-06-21] MEDS: Temazepam 15 MG Cap PO PRN (22:04)
[2020-06-22] MEDS: oxyCODONE 5 MG Tab PO PRN ×3 (02:13→10:23)
[2020-06-22] MEDS: Albuterol/Ipratropium 3.0-0.5 MG/3 ML Neb Soln NEB SCH (07:13)
[2020-06-22] MEDS ORDERED: predniSONE 20 MG Tab PO SCH (08:00)
[2020-06-22] MEDS: Lactobacillus Rhamnosus GG (Probiotic) Cap PO SCH (08:57)
[2020-06-22] MEDS: Fluticasone Propionate Nasal Spray 16 GM Bottle NASBOTH SCH (08:57)
[2020-06-22] MEDS: Estradiol 0.5 MG Tab PO SCH (08:57)
[2020-06-22] MEDS: Nicotine 14 MG/24 Hr Patch TRDERM SCH (08:58)
[2020-06-22] MEDS: Cyclobenzaprine 10 MG Tab PO SCH (08:58)
[2020-06-22] MEDS: Polyethylene Glycol 3350 Powder 17 GM Packet PO SCH (08:58)
[2020-06-22] MEDS: PILOCARPINE 5 MG PO SCH (08:58)
[2020-06-22] MEDS: Gabapentin 300 MG Cap PO SCH (08:58)
[2020-06-22] MEDS: Doxycycline 100 MG Cap PO SCH (08:59)
[2020-06-22] MEDS: Multivitamins with Iron/Calcium/Folic Acid/Minerals Tab PO SCH (08:59)
--- NOTE | 2020-06-22 10:43 | PCM.DCSUM1 ---
Discharge Summary - Hospital Course Brief History: Ms. Arita is a 59-year-old woman who was admitted through the emergency department with shortness of breath, cough, hypoxia, secondary to COPD exacerbation and underlying bilateral pneumonia. - Discharge Data Discharge Date: 06/22/20 Discharge Disposition: Home, Self-Care 01 Condition: Fair - Referral to Home Health Primary Care Physician: Elyse Esquivel DO - Discharge Diagnosis/Problem(s) (1) COPD exacerbation SNOMED Code(s): 310845955 ICD Code: J44.1 - CHRONIC OBSTRUCTIVE PULMONARY DISEASE W (ACUTE) EXACERBATION Status: Acute Current Visit: Yes (2) Acute respiratory failure with hypoxia SNOMED Code(s): 82894024, 754138899 ICD Code: J96.01 - ACUTE RESPIRATORY FAILURE WITH HYPOXIA Status: Acute Current Visit: Yes (3) Bilateral pneumonia SNOMED Code(s): 302363310 ICD Code: J18.9 - PNEUMONIA, UNSPECIFIED ORGANISM Status: Acute Current Visit: Yes - Patient Summary/Data Hospital Course: Ms. Arita is a 59-year-old woman who was admitted through the emergency department with progressive shortness of breath, cough, hypoxia, secondary to COPD exacerbation and underlying bilateral pneumonia. Symptoms progressed over a few days to the point where she was very short of breath even at rest. She presented to the emergency department and was found to be hypoxic on initial assessment. White blood cell count was elevated and CT scan of the chest shows evidence of bilateral infiltrates. She has a known history of COPD but does not require oxygen at home. She initially was given IV fluids for hydration and started on IV antibiotic therapy with ceftriaxone and doxycycline. Blood cultures had been obtained while in the emergency department and remained negative through the rest of her hospital stay. She gradually improved during hospitalization and by the time of discharge was off of supplemental oxygen with good oxygenation on room air. She had been treated with IV Solu-Medrol and this was transitioned to oral prednisone prior to discharge. She will be discharged home with an additional 4 days of oral doxycycline as well as 4 additional days of prednisone. Activity will be as tolerated and she will resume her usual diet. Follow-up appointment will be scheduled with her primary care provider within 1 week. - Patient Instructions Diet: Usual Diet as Tolerated Activity: As Tolerated Other/Special Instructions: Please schedule follow-up appointment with primary care provider within 1 week. Follow-up chest x-ray should be obtained to document clearing of bilateral infiltrates. - Discharge Plan *PRESCRIPTION DRUG MONITORING PROGRAM REVIEWED*: Not Applicable *COPY OF PRESCRIPTION DRUG MONITORING REPORT IN PATIENT RAY: Not Applicable Prescriptions/Med Rec: predniSONE 40 mg PO WITHBREAKFAST #8 tablet Doxycycline [Vibramycin] 100 mg PO Q12H #8 cap Home Medications: Home Meds Albuterol Sulfate [Proair Hfa] 1 - 2 inh INH ASDIRECTED 06/18/20 [History] Albuterol [Proventil Neb Soln] 3 ml INH QID 06/18/20 [History] Albuterol/Ipratropium [DuoNeb 3.0-0.5 MG/3 ML] 1 ml INH Q4H 06/18/20 [History] Cyclobenzaprine [Flexeril] 10 mg PO TID 06/18/20 [History] Dextroamphetamine/Amphetamine [Adderall 10 mg Tablet] 1 tab PO BID 06/18/20 [History] Diphenhyd/Lidocaine/Nystatin [Magic Mouthwash] 5 ml PO QID 06/18/20 [History] EPINEPHrine [Auvi-Q] 0.3 ml SQ ASDIRECTED 06/18/20 [History] Fluticasone Propionate [Flonase] 2 sprays NS DAILY 06/18/20 [History] Fluticasone/Vilanterol [Breo Ellipta 100-25 MCG Inhalation Kit] 1 inh INH DAILY 06/18/20 [History] Gabapentin [Neurontin] 300 mg PO TID 06/18/20 [History] Montelukast [Singulair] 10 mg PO PCDINNER 06/18/20 [History] Multivitamin with Minerals [Multiple Vitamin] 1 tab PO DAILY 06/18/20 [History] Nitroglycerin 1 tab SL ASDIRECTED 06/18/20 [History] Nystatin [Mycostatin] 1 applic TOP QID 06/18/20 [History] Nystatin [Nystatin Crm] 1 applic TOP BID 06/18/20 [History] Omeprazole Magnesium [Prilosec Otc] 20 mg PO DAILY 06/18/20 [History] Oxybutynin [Oxybutynin ER] 10 mg PO DAILY 06/18/20 [History] Pilocarpine [[place]] 5 mg PO TID 06/18/20 [History] Rotigotine [Neupro] 4 mg TOP DAILY 06/18/20 [History] SUMAtriptan [Imitrex] 1 tab PO ASDIRECTED PRN 06/18/20 [History] Sodium Chloride 0.65% [[place] Nasal [place]] 2 spray INH QID 06/18/20 [History] Temazepam [Restoril] 30 mg PO BEDTIME 06/18/20 [History] Triamcinolone Acetonide [Triamcinolone Acetonide 0.5%] 1 applic TOP BID 06/18/20 [History] Umeclidinium [place] [Incruse Ellipta*] 1 inh INH DAILY 06/18/20 [History] estradioL [Estrace] 2 mg PO DAILY 06/18/20 [History] oxyCODONE 10 mg PO Q4H PRN 06/18/20 [History] polyethylene glycoL 3350 [MiraLAX] 17 gm PO DAILY 06/18/20 [History] traZODone 50 mg PO BEDTIME 06/18/20 [History] Doxycycline [Vibramycin] 100 mg PO Q12H #8 cap 06/22/20 [Rx] predniSONE 40 mg PO WITHBREAKFAST #8 tablet 06/22/20 [Rx] Patient Handouts: Chronic Obstructive Pulmonary Disease Exacerbation, [id number] Referrals: Elyse Esquivel DO [Primary Care Provider] - 06/27/20 10:00 am (You are scheduled for your covid vaccine on June 27 at 9:00 AM.) - Discharge Summary/Plan Comment DC Time >30 min.: No - Patient Data Vitals - Most Recent: Last Vital Signs Temp 94.0 F L 06/22/20 07:21 Pulse 80 06/22/20 07:30 Resp 18 06/22/20 07:21 BP 130/89 06/22/20 07:21 Pulse Ox 91 L 06/22/20 07:21 Weight - Most Recent: 190 lb 14.725 oz I&O - Last 24 hours: Intake & Output 06/21/20 06/22/20 06/22/20 22:59 06:59 14:59 Intake Total 1480 500 Output Total 300 Balance 1480 200 ALTHEA Results - Last 24 hrs: Microbiology 06/18/20 20:15 Aerobic Blood Culture - Preliminary Blood - Venous - Lab Draw NO GROWTH AFTER 3 DAYS Anaerobic Blood Culture - Preliminary NO GROWTH AFTER 3 DAYS 06/18/20 20:00 Aerobic Blood Culture - Preliminary Blood - Venous NO GROWTH AFTER 3 DAYS Anaerobic Blood Culture - Preliminary NO GROWTH AFTER 3 DAYS Med Orders - Current: Current Medications Albuterol (Albuterol 0.083% 2.5 Mg/3 Ml Neb Soln) 2.5 mg NEB Q4H PRN PRN Reason: Shortness Of Breath/wheezing Last Admin: 06/20/20 10:20 Dose: 2.5 mg Documented by: Albuterol/Ipratropium (Albuterol/Ipratropium 3.0-0.5 Mg/3 Ml Neb Soln) 3 ml NEB QIDRT [facility] Last Admin: 06/22/20 07:13 Dose: 3 ml Documented by: Bisacodyl (Bisacodyl 5 Mg Tab) 5 mg PO DAILY PRN PRN Reason: Constipation Cyclobenzaprine HCl (Cyclobenzaprine 10 Mg Tab) 10 mg PO TID [facility] Last Admin: 06/22/20 08:58 Dose: 10 mg Documented by: Docusate Sodium (Docusate Sodium 100 Mg Cap) 100 mg PO BID PRN PRN Reason: Constipation Doxycycline Hyclate (Doxycycline 100 Mg Cap) 100 mg PO Q12H [facility] Last Admin: 06/22/20 08:59 Dose: 100 mg Documented by: Enoxaparin Sodium (Enoxaparin 40 Mg/0.4 Ml Syringe) 40 mg SUBCUT BEDTIME [facility] Last Admin: 06/21/20 21:01 Dose: 40 mg Documented by: Estradiol (Estradiol 0.5 Mg Tab) 2 mg PO DAILY [facility] Last Admin: 06/22/20 08:57 Dose: 2 mg Documented by: Fluticasone Propionate (Fluticasone Propionate Nasal [place] 16 Gm Bottle) 0 gm NASBOTH DAILY [facility] Last Admin: 06/22/20 08:57 Dose: Not Given Documented by: Gabapentin (Gabapentin 300 Mg Cap) 300 mg PO TID [facility] Last Admin: 06/22/20 08:58 Dose: 300 mg Documented by: Ceftriaxone Sodium 1 gm/ (Sodium Chloride) 50 mls @ 100 mls/hr IV Q24H [facility] Last Admin: 06/21/20 19:24 Dose: 100 mls/hr Documented by: Lactobacillus Rhamnosus (Lactobacillus Rhamnosus Gg (Probiotic) Cap) 1 cap PO BID [facility] Last Admin: 06/22/20 08:57 Dose: 1 cap Documented by: Montelukast Sodium (Montelukast 10 Mg Tab) 10 mg PO PCDINNER [facility] Last Admin: 06/21/20 17:49 Dose: 10 mg Documented by: Multivitamins/Minerals (Multivitamins With Iron/Calcium/Folic Acid/Minerals Tab) 1 tab PO DAILY [facility] Last Admin: 06/22/20 08:59 Dose: 1 tab Documented by: Nicotine (Nicotine 14 Mg/24 Hr Patch) 14 mg TRDERM DAILY [facility] Last Admin: 06/22/20 08:58 Dose: Not Given Documented by: Nitroglycerin (Nitroglycerin 0.4 Mg Tab.Sl) 0.4 mg SL ASDIRECTED PRN PRN Reason: Chest Pain [place] 5 Mg (Ptom) 0 mg PO TID [facility] Last Admin: 06/22/20 08:58 Dose: 5 mg Documented by: Ondansetron HCl (Ondansetron 4 Mg Tab.Dis) 4 mg PO Q6H PRN PRN Reason: Nausea able to take PO Ondansetron HCl (Ondansetron 4 Mg/2 Ml Sdv) 4 mg IV Q4H PRN PRN Reason: Nausea/Vomiting Oxycodone HCl (Oxycodone 5 Mg Tab) 10 mg PO Q4H PRN PRN Reason: Pain Last Admin: 06/22/20 10:23 Dose: 10 mg Documented by: Pantoprazole Sodium (Pantoprazole 40 Mg Tab.Cr) 40 mg PO BEDTIME [facility] Last Admin: 06/21/20 21:01 Dose: 40 mg Documented by: Polyethylene Glycol (Polyethylene Glycol 3350 Powder 17 Gm Packet) 17 gm PO DAILY [facility] Last Admin: 06/22/20 08:58 Dose: Not Given Documented by: Prednisone (Prednisone 20 Mg Tab) 40 mg PO WITHBREAKFAST [facility] Last Admin: 06/22/20 07:27 Dose: 40 mg Documented by: Sodium Chloride (Sodium Chloride 0.9% 10 Ml Syringe) 10 ml FLUSH ASDIRECTED PRN PRN Reason: Keep Vein Open Last Admin: 06/18/20 18:10 Dose: 10 ml Documented by: Sumatriptan Succinate (Sumatriptan 50 Mg Tab) 50 mg PO Q2H PRN PRN Reason: Headache Last Admin: 06/20/20 16:13 Dose: 50 mg Documented by: Temazepam (Temazepam 15 Mg Cap) 30 mg PO BEDTIME PRN PRN Reason: Insomnia Last Admin: 06/21/20 22:04 Dose: 30 mg Documented by: Trazodone HCl (Trazodone 50 Mg Tab) 50 mg PO BEDTIME [facility] Last Admin: 06/21/20 21:00 Dose: Not Given Documented by: Discontinued Medications Albuterol/Ipratropium (Albuterol/Ipratropium 3.0-0.5 Mg/3 Ml Neb Soln) 3 ml NEB ONETIME ONE Stop: 06/18/20 16:05 Last Admin: 06/18/20 16:20 Dose: 3 ml Documented by: Enoxaparin Sodium (Enoxaparin 40 Mg/0.4 Ml Syringe) 40 mg SUBCUT DAILY [facility] Last Admin: 06/18/20 20:32 Dose: 40 mg Documented by: Hydromorphone HCl (Hydromorphone 1 Mg/Ml Syringe) 1 mg IVPUSH ONETIME ONE Stop: 06/18/20 19:08 Last Admin: 06/18/20 19:34 Dose: 1 mg Documented by: Sodium Chloride (Normal Saline) 1,000 mls @ 500 mls/hr IV ASDIRECTED [facility] Last Admin: 06/18/20 17:47 Dose: 500 mls/hr Documented by: Sodium Chloride (Normal Saline) 80 mls @ 3 mls/sec IV ASDIRECTED [facility] Last Admin: 06/18/20 18:10 Dose: 3 mls/sec Documented by: Azithromycin 500 mg/ Sodium (Chloride) 250 mls @ 250 mls/hr IV Q24H [facility] Last Admin: 06/18/20 20:36 Dose: 250 mls/hr Documented by: Sodium Chloride (Normal Saline) 1,000 mls @ 125 mls/hr IV ASDIRECTED [facility] Last Admin: 06/19/20 04:44 Dose: 125 mls/hr Documented by: Doxycycline Hyclate 100 mg/ (Sodium Chloride) 100 mls @ 100 mls/hr IV Q12H [facility] Last Admin: 06/21/20 10:48 Dose: 100 mls/hr Documented by: Iopamidol (Iopamidol 612 Mg/Ml 100 Ml Bottle) 100 ml IV . DIRECTED [facility] Last Admin: 06/18/20 18:10 Dose: 100 ml Documented by: Methylprednisolone Sodium Succinate (Methylprednisolone Sodium Succinate 125 Mg/2 Ml Sdv) 125 mg IVPUSH ONETIME ONE Stop: 06/18/20 19:58 Last Admin: 06/18/20 20:31 Dose: 125 mg Documented by: Methylprednisolone Sodium Succinate (Methylprednisolone Sodium Succinate 40 Mg/1 Ml Sdv) 40 mg IVPUSH Q6H [facility] Last Admin: 06/21/20 08:45 Dose: 40 mg Documented by: Pantoprazole Sodium (Pantoprazole 40 Mg Vial) 40 mg IV BEDTIME [facility] Last Admin: 06/18/20 20:31 Dose: 40 mg Documented by: - Exam Quality Assessment: Reports: DVT Prophylaxis. Denies: Supplemental Oxygen General: Reports: Alert, Oriented, Cooperative, Mild Distress Lungs: Reports: Decreased Breath Sounds, Wheezing. Denies: Crackles, Rales, Rhonchi Cardiovascular: Reports: Regular Rate, Regular Rhythm, No Murmurs GI/Abdominal Exam: Soft, Non-Tender, No Organomegaly, No Distention Extremities: Non-Tender, No Pedal Edema
== END 2020-06-22 11:02 | disposition home or self-care (01) | DRG 193 ==
LOC: JP.ED 15:26 → JP.MS 19:11
PROVIDERS: ADMIT Hospitalist; ATTEND Hospitalist
DX: J18.9 Pneumonia, unspecified organism (principal); J22 Unspecified acute lower respiratory infection; J96.01 Acute respiratory failure with hypoxia; J45.909 Unspecified asthma, uncomplicated; J44.0 Chronic obstructive pulmonary disease with (acute) lower respiratory infection; J44.1 Chronic obstructive pulmonary disease with (acute) exacerbation; Z79.899 Other long term (current) drug therapy; Z91.030 Bee allergy status; Z79.52 Long term (current) use of systemic steroids; G89.29 Other chronic pain; Z88.8 Allergy status to other drugs, medicaments and biological substances; I50.9 Heart failure, unspecified; M79.7 Fibromyalgia; Z90.89 Acquired absence of other organs; F17.210 Nicotine dependence, cigarettes, uncomplicated; Z20.822 Contact with and (suspected) exposure to COVID-19
CPT/HCPCS: 0241U; 36415; 71046; 71260; 80048; 80053; 81001; 82150; 83690; 84484; 85025; 85379; 87040; 94640; 94762; 99285; A9270-GY; C9113; J0456; J0696; J1170; J1650; J2920; J2930; J3490; J7030; J7050; J7512; J7620-GY; Q9967